=== PATIENT | female | born 1985 | race Caucasian/White ===

== ENCOUNTER 2018-08-26 18:31 | Emergency (ER) | payer OTHER, SELFPAY ==
[2018-08-26 18:32] VITALS: BP 134/86; PULSE 90; RESP 18; TEMP 36.2; O2SAT 100; BMI 35.9
--- NOTE | 2018-08-26 18:50 | ED.VISSUMM ---
- ER Visit Summary Date of Service: 08/26/18 Chief Complaint: Forearm redness and discomfort after a recent IV History of Present Illness: The patient is a 32 F history of anxiety. Patient states she was having back spasms last week. Want to done at the ER in [place]. He placed an IV. She was given IV fluids. And Toradol. She states that on Thursday she started getting some discomfort in left forearm and a red streak. No fever. No chest pain. No shortness of breath. No significant swelling of her left arm. No prior history of DVT or phlebitis. Physical Examination: Very well-appearing young female. Vital signs are stable afebrile. H EENT exam unremarkable. Neck nontender. Lungs there to auscultation bilaterally. Heart regular rhythm no murmur. Abdomen soft nontender. Patient is moving all 4 extremities. Neurovascular intact. She has 5 out of 5 plugger strength in both hands. The left forearm on the radial side there is a red streak about mid forearm that goes up just past her antecubital fossa. This area is mildly tender. There is a red streak but no otherwise cellulitis. There is no axillary tenderness or lymphadenopathy. She has full range of motion to her left hand, wrist, elbow and shoulder. There is no edema to the forearm. She has a normal radial pulse. Normal cap refill. No swelling. The exam is consistent with a superficial phlebitis versus lymphangitis. Test Results: None Emergency Department Course and Treatment: P.o. Keflex. Treatment Plan: Warm compresses to the area. Motrin for pain and inflammation. Keflex 4 times a day for 1 week. Follow-up with her primary if not improving or return to the ER if looking worse specifically if she starts getting swelling of the arm. Or fever. Disposition: Discharge Impression: Acute left forearm superficial phlebitis status post recent IV (rule out lymphangitis) This note was generated with [employer] dictation software. It may contain incorrect words, spelling, and punctuation that were not noted in review of the chart prior to signing ED Disposition - Plan for ED Patient: Chief Complaint: Cellulitis Referrals: Jole Giron DO [Primary Care Provider] -
--- NOTE | 2018-08-26 18:53 | ED.DCSUM_ITS ---
- ER Visit Summary Date of Service: 08/26/18 Chief Complaint: Forearm redness and discomfort after a recent IV History of Present Illness: The patient is a 32 F history of anxiety. Patient states she was having back spasms last week. Want to done at the ER in [place]. He placed an IV. She was given IV fluids. And Toradol. She states that on Thursday she started getting some discomfort in left forearm and a red streak. No fever. No chest pain. No shortness of breath. No significant swelling of her left arm. No prior history of DVT or phlebitis. Physical Examination: Very well-appearing young female. Vital signs are stable afebrile. H EENT exam unremarkable. Neck nontender. Lungs there to auscultation bilaterally. Heart regular rhythm no murmur. Abdomen soft nontender. Patient is moving all 4 extremities. Neurovascular intact. She has 5 out of 5 digital x ray service engineer strength in both hands. The left forearm on the radial side there is a red streak about mid forearm that goes up just past her antecubital fossa. This area is mildly tender. There is a red streak but no otherwise cellulitis. There is no axillary tenderness or lymphadenopathy. She has full range of motion to her left hand, wrist, elbow and shoulder. There is no edema to the forearm. She has a normal radial pulse. Normal cap refill. No swelling. The exam is consistent with a superficial phlebitis versus lymphangitis. Test Results: None Emergency Department Course and Treatment: P.o. Keflex. Treatment Plan: Warm compresses to the area. Motrin for pain and inflammation. Keflex 4 times a day for 1 week. Follow-up with her primary if not improving or return to the ER if looking worse specifically if she starts getting swelling of the arm. Or fever. Disposition: Discharge Impression: Acute left forearm superficial phlebitis status post recent IV (rule out lymphangitis) This note was generated with [employer] dictation software. It may contain incorrect words, spelling, and punctuation that were not noted in review of the chart prior to signing ED Disposition - Plan for ED Patient: Chief Complaint: Cellulitis Referrals: Joel Giron DO [Primary Care Provider] -
--- NOTE | 2018-08-26 18:53 | ED.DEP ---
ED Disposition - Plan for ED Patient: Disposition: Home or Assisted Living Chief Complaint: Cellulitis Instructions: ED Phlebitis Superficial Prescriptions: Cephalexin [Keflex] 500 mg PO Q6 #30 cap Referrals: oJel Giron DO [Primary Care Provider] - 3-5 Days if not improving Additional Instructions: Warm compresses or heating pad to left forearm 3 times a day until resolved. Motrin for pain and inflammation. 600 mg 3 times a day. Keflex 1 pill 4 times a day till gone. Return if looking a lot worse or develops new swelling in your forearm. Otherwise follow-up your primary care physician as needed.
[2018-08-26] MEDS: Cephalexin 250 MG Capsule 500 MG PO (19:05)
[2018-08-26 19:07] VITALS: PULSE 87; RESP 16; O2SAT 99
--- OUTSIDE RECORDS SUMMARY | 2018-10-21 23:35 | XMS RPT_ITS ---
:1985 Author Organization OHIP Care Team Providers Name Role Phone ROCÍO LOPEZ Attending Unavailable JAYLEN VASQUEZ ([facility]) Attending Unavailable KAILA NOBLES Attending Unavailable JOEL GIRON DO Primary Care Unavailable ROBERTO Faye Attending Unavailable JOEL GIRON DO Primary Care Unavailable ROBERTO Faye Attending Unavailable JOEL GIRON DO Primary Care Unavailable JIM LEDESMA Attending Unavailable SELF, SELF Referring Unavailable Joel Giron Primary Care Unavailable Gino Loera Attending Unavailable PROBLEMS PROBLEMS DATE TYPE CONDITION / ATTENDING STATUS SOURCE CODE 08/26/2018 Admitting Arm swelling / LEDESMA, Active [facility] Diagnosis [id number]() [facility] ([place]) Repository PROCEDURES PROCEDURES No Procedure Records FoundRESULTS RESULTS CBC Collected: 09/03/2018 Status: F Source: [facility] 4:31 PM [place] [facility] REPOSITORY TYPE CODE TESTS RESULT OUT OF REFERENCE UNITS RANGE LAB WBC(LOINC) 4.60-10.80 10 3/mcL WBC 9.40 LAB RBCCT(LOINC 4.20-5.40 10 6/mcL ) RBC 4.83 LAB HGB(LOINC) 12.0-16.0 G/dL Hgb 13.9 LAB HCT(LOINC) 37.0-47.0 % Hct 41.7 LAB MCV(LOINC) 80.0-94.0 fL MCV 86.4 LAB MCH(LOINC) 27.0-31.2 pg MCH 28.8 LAB MCHC(LOINC) 33.0-37.0 G/dL MCHC 33.4 LAB RDW(LOINC) 11.5-14.5 % RDW 12.7 LAB PLT(LOINC) 130-400 10 3/mcL Platelet 308 LAB MPV(LOINC) 7.4-10.4 fL MPV 8.2 Performed By: #### ANEU, CBC, ADIFF #### [address] [address] .AUTO DIFF Collected: 09/03/2018 Status: F Source: [facility] 4:31 [facility] REPOSITORY TYPE CODE TESTS RESULT OUT OF REFERENCE UNITS RANGE LAB AYDEE(LOINC) 37.0-80.0 % Neutrophil % 57.5 LAB LYM(LOINC) 10.0-50.0 % Lymphocyte % 33.6 LAB MON(LOINC) 1.7-13.0 % Monocyte % 6.8 LAB EO(LOINC) 0.0-7.0 % Eosinophil % 1.7 LAB BAS(LOINC) 0.0-2.5 % Basophil % 0.4 LAB ABLYM(LOIN 0.77-3.85 10 3/mcL C) Lymphocyte, 3.20 Absolute LAB LETY(LOINC 0.15-1.00 10 3/mcL ) Monocyte, 0.60 Absolute LAB AEOS(LOINC 0.00-0.40 10 3/mcL ) Eosinophil, 0.20 Absolute LAB ABAS(LOINC 0.00-0.19 10 3/mcL ) Basophil, 0.00 Absolute Performed By: #### ANEU, CBC, ADIFF #### [address] [address] .NEUABS Collected: 09/03/2018 Status: F Source: [facility] 4:31 PM [facility] REPOSITORY TYPE CODE TESTS RESULT OUT OF REFERENCE UNITS RANGE LAB ANEU(LOINC) 2.85-6.16 10 3/mcL Neutrophil, 5.40 Absolute Performed By: #### ANEU, CBC, ADIFF #### [id number] [place], [place] [address] VL VENOUS UNILATERAL Observed: 08/27/2018 Status: F Source: [facility] EXT FOR DVT 8:54 AM [facility] REPOSITORY ORIGINAL DUPLEX UPPER EXTREMITY VENOUS DOPPLER: LEFT Clinical Statement: LEFT arm pain, history of recent IV in the LEFT upper extremity last week Comparison: None Findings: There is echogenic material/filling defect within the noncompressible LEFT basilic vein. The LEFT subclavian, axillary, brachial, radial, ulnar, and cephalic veins show no direct or indirect evidence of thrombosis. There is normal phasic spontaneous flow in these veins which are also compre ssible. The internal jugular vein is also patent. Spectral analysis shows normal flow augmentation in the subclavian and axillary veins with physiologic maneuvers. IMPRESSION: Superficial venous thrombosis within the LEFT basilic vein. No extension into the deep venous structures identified. I have personally reviewed the images of this examination and agree with the resident's findings and interpretation. Interpreted By: Justa Alvarado MD Preliminary Report By: Daniel Jefferson DO Electronically Signed By: Justa Alvarado MD Dictated Date: 08/27/2018 10:01:08 AM Prelim Date: 08/27/2018 10:21:12 AM Sign Date: 08/27/2018 10:39:58 AM EMERGENCY DEPARTMENT Observed: 08/26/2018 Status: F Source: [facility] SUMMARY 11:54 PM [facility] REPOSITORY [facility] Medical Records Department [address] [place] [address] Emergency Department Summary 08/26/18 1850 MR#: [id number] Acct: [id number] Name: KASSANDRA HAHN Rep #: [id number] : 1985 32 From: Gino Loera MD PCP: Joel Giron DO Status: DEP ER - ER Visit Summary Date of Service: 08/26/18 Chief Complaint: Forearm redness and discomfort after a recent IV History of Present Illness: The patient is a 32 F history of anxiety. Patient states she was having back spasms last week. Want to done at the ER in [place]. He placed an IV. She was given IV fluids. And Toradol. She states that on Thursday she started getting some discomfort in left forearm and a red streak. No fever. No chest pain. No shortness of breath. No significant swelling of her left arm. No prior history of DVT or phlebitis. Physical Examination: Very well-appearing young female. Vital signs are stable afebrile. H EENT exam unremarkable. Neck nontender. Lungs there to auscultation bilaterally. Heart regular rhythm no murmur. Abdomen soft nontender. Patient is moving all 4 extremities. Neurovascular intact. She has 5 out of 5 lyric writer strength in both hands. The left forearm on the radial side there is a red streak about mid forearm that goes up just past her antecubital fossa. This area is mildly tender. There is a red streak but no otherwise cellulitis. There is no axillary tenderness or lymphadenopathy. She has full range of motion to her left hand, wrist, elbow and shoulder. There is no edema to the forearm. She has a normal radial pulse. Normal cap refill. No swelling. The exam is consistent with a superficial phlebitis versus lymphangitis. Test Results: None Emergency Department Course and Treatment: P.o. Keflex. Treatment Plan: Warm compresses to the area. Motrin for pain and inflammation. Keflex 4 times a day for 1 week. Follow-up with her primary if not improving or return to the ER if looking worse specifically if she starts getting swelling of the arm. Or fever. Disposition: Discharge Impression: Acute left forearm superficial phlebitis status post recent IV (rule out lymphangitis) This note was generated with [employer] dictation software. It may contain incorrect words, spelling, and punctuation that were not noted in review of the chart prior to signing ED Disposition - Plan for ED Patient: Chief Complaint: Cellulitis Referrals: Joel Giron, DO [Primary Care Provider] - What to do if you have Problems For any increased pain, shortness of breath, bleeding, nausea or vomiting, chest pain, or any unexpected problems, contact your Primary Care Provider. Call [facility] ([phone]) or report to the closest Emergency Room. Call 911 if necessary. 08/26/18 3824 <Electronically signed by Gino Loera MD> Date Gino Loera MD Cosigner Signature (If Indicated): Date CC: Joel Giron DO DISCHARGE INSTRUCTION Observed: 08/26/2018 Status: F Source: [place] 11:54 PM [facility] REPOSITORY [facility] Medical Records Department [address] [place] [address] Discharge Instruction 08/26/18 1853 MR#: [id number] Acct: [id number] Name: KASSANDRA HAHN Rep #: [id number] : 1985 32 From: Gino Loera MD PCP: Joel Giron DO Status: DEP ER ED Disposition - Plan for ED Patient: Disposition: Home or Assisted Living Chief Complaint: Cellulitis Instructions: ED Phlebitis Superficial Prescriptions: Cephalexin [Keflex] 500 mg PO Q6 #30 cap Referrals: Joel Giron DO [Primary Care Provider] - 3-5 Days if not improving Additional Instructions: Warm compresses or heating pad to left forearm 3 times a day until resolved. Motrin for pain and inflammation. 600 mg 3 times a day. Keflex 1 pill 4 times a day till gone. Return if looking a lot worse or develops new swelling in your forearm. Otherwise follow-up your primary care physician as needed. What to do if you have Problems For any increased pain, shortness of breath, bleeding, nausea or vomiting, chest pain, or any unexpected problems, contact your Primary Care Provider. Call [facility] ([phone]) or report to the closest Emergency Room. Call 911 if necessary. 08/26/18 0758 <Electronically signed by Gino Loera MD> Date Gino Loera MD Cosigner Signature (If Indicated): Date CC: Joel Giron DO CT ABDOMEN/PELVIS W/O Observed: 08/18/2018 Status: F Source: [facility] 7:34 PM [facility] [place] [facility] REPOSITORY ORIGINAL CT ABDOMEN/PELVIS W/O CONTRAST This exam was performed according to our departmental dose optimization program, and includes the following measures where applicable: automated exposure control, adjustment of the mAs and/or kVp accord ing to patient size and/or exam, and an iterative reconstruction algorithm. CLINICAL STATEMENT: Abdominal pain. COMPARISON: None FINDINGS: Lung bases are clear. Liver is diffusely low in density. No focal liver lesion. Gallbladder and biliary tree, pancreas, spleen and stomach and duodenum are unremarkable. Adrenal glands and kidneys are unremarkable. No aorti c aneurysm. Urinary bladder and uterus and adnexal structures are normal. Large and small bowel loops are normal in appearance. No ascites or free air. Appendix is normal. No suspicious bone lesions. IMPRESSION: No visible acute process. Low-density of the liver most likely fatty infiltration. Interpreted By: Porfirio Goodman MD Preliminary Report By: Porfirio Goodman MD Electronically Signed By: Porfirio Goodman MD Dictated Date: 08/18/2018 8:08:37 PM Prelim Date: 08/18/2018 8:08:37 PM Sign Date: 08/18/2018 8:10:42 PM CBC Collected: 08/18/2018 Status: F Source: [facility] 6:36 PM [facility] REPOSITORY TYPE CODE TESTS RESULT OUT OF REFERENCE UNITS RANGE LAB WBC(LOINC) 4.60-10.80 10 3/mcL WBC 8.40 LAB RBCCT(LOINC 4.20-5.40 10 6/mcL ) RBC 5.01 LAB HGB(LOINC) 12.0-16.0 G/dL Hgb 14.6 LAB HCT(LOINC) 37.0-47.0 % Hct 43.5 LAB MCV(LOINC) 80.0-94.0 fL MCV 86.9 LAB MCH(LOINC) 27.0-31.2 pg MCH 29.2 LAB MCHC(LOINC) 33.0-37.0 G/dL MCHC 33.7 LAB RDW(LOINC) 11.5-14.5 % RDW 12.8 LAB PLT(LOINC) 130-400 10 3/mcL Platelet 296 LAB MPV(LOINC) 7.4-10.4 fL MPV 7.9 Performed By: #### GFR, BMP #### [place] [address] #### ANEU, ADIFF, CBC #### [address] [address] .AUTO DIFF Collected: 08/18/2018 Status: F Source: [facility] 6:36 PM [facility] REPOSITORY TYPE CODE TESTS RESULT OUT OF REFERENCE UNITS RANGE LAB AYDEE(LOINC) 37.0-80.0 % Neutrophil % 53.7 LAB LYM(LOINC) 10.0-50.0 % Lymphocyte % 36.7 LAB MON(LOINC) 1.7-13.0 % Monocyte % 7.4 LAB EO(LOINC) 0.0-7.0 % Eosinophil % 1.5 LAB BAS(LOINC) 0.0-2.5 % Basophil % 0.7 LAB ABLYM(LOIN 0.77-3.85 10 3/mcL C) Lymphocyte, 3.10 Absolute LAB LETY(LOINC 0.15-1.00 10 3/mcL ) Monocyte, 0.60 Absolute LAB AEOS(LOINC 0.00-0.40 10 3/mcL ) Eosinophil, 0.10 Absolute LAB ABAS(LOINC 0.00-0.19 10 3/mcL ) Basophil, 0.10 Absolute Performed By: #### GFR, BMP #### [place] [address] #### ANEU, ADIFF, CBC #### [address] [address] .NEUABS Collected: 08/18/2018 Status: F Source: [facility] 6:36 PM [facility] REPOSITORY TYPE CODE TESTS RESULT OUT OF REFERENCE UNITS RANGE LAB ANEU(LOINC) 2.85-6.16 10 3/mcL Neutrophil, 4.50 Absolute Performed By: #### GFR, BMP #### [place] [address] #### ANEU, ADIFF, CBC #### [address] [address] BMP Collected: 08/18/2018 Status: F Source: [facility] 6:36 PM [facility] REPOSITORY TYPE CODE TESTS RESULT OUT OF REFERENCE UNITS RANGE LAB GLU(LOINC) 70-105 mg/dL Glucose Level 88 LAB NA(LOINC) 136-145 mmol/L Sodium Level 137 LAB K(LOINC) 3.5-5.1 mmol/L Potassium Level 3.9 LAB CL(LOINC) 98-107 mmol/L Chloride 104 LAB CO2(LOINC) 22-29 mmol/L CO2 24 LAB EBAL(LOINC mEq/L ) Electrolyte Balance 9.0 LAB BUN(LOINC) 7-18 mg/dL BUN 12 LAB CRE(LOINC) 0.55-1.02 mg/dL Creatinine Lvl (s) 0.82 LAB BC(LOINC) 7-27 ratio BUN/Creatinine 15 Ratio LAB CA(LOINC) 8.4-10.2 mg/dL Calcium Lvl 8.8 Performed By: #### GFR, BMP #### [facility] [address] [place] [id number] #### ANEU, ADIFF, CBC #### [address] [address] .GFR Collected: 08/18/2018 Status: F Source: [facility] 6:36 PM [facility] REPOSITORY TYPE CODE TESTS RESULT OUT OF REFERENCE UNITS RANGE LAB GFRAA(LOINC ml/min/1.73 ) sqm GFR 97 [place] Result Comment: GFR Population mean for , Non- Americans Ages 20-29 = 116 mL/min/1.73 sq.m. Ages 30-39 = 107 mL/min/1.73 sq.m. Ages 40-49 = 99 mL/min/1.73 sq.m. Ages 50-59 = 93 mL/min/1.73 sq.m. Ages 60-69 = 85 mL/min/1.73 sq.m. Ages 70+ = 75 mL/min/1.73 sq.m. Chronic Kidney Disease: Less than 60 mL/min/1.73 square meters End Stage Renal Disease: Less than 15 mL/min/1.73 square meters LAB GFRNO(LOINC) ml/min/1.73sqm GFR Non- 80 Result Comment: GFR Population mean for , Non- Americans Ages 20-29 = 116 mL/min/1.73 sq.m. Ages 30-39 = 107 mL/min/1.73 sq.m. Ages 40-49 = 99 mL/min/1.73 sq.m. Ages 50-59 = 93 mL/min/1.73 sq.m. Ages 60-69 = 85 mL/min/1.73 sq.m. Ages 70+ = 75 mL/min/1.73 sq.m. Chronic Kidney Disease: Less than 60 mL/min/1.73 square meters End Stage Renal Disease: Less than 15 mL/min/1.73 square meters Performed By: #### GFR, BMP #### [place] [address] #### ANEU, ADIFF, CBC #### [address] [address] UA Collected: 08/18/2018 Status: F Source: [facility] 6:12 PM [facility] [facility] REPOSITORY TYPE CODE TESTS RESULT OUT OF RANGE REFERENCE UNITS LAB SPCUA([place]) UA Specimen Type Clean Catch LAB CLRUA([place]) UA Color Yellow LAB APPUA([place] Clear NC) UA Appear Clear LAB SGUA(LOIN C) UA Spec Unknown Grav 1.005 LAB GLUA(LOIN Negative mg/dL C) UA Glucose Negative LAB BILUA([place] Negative NC) UA Bili Negative LAB KETUA([place] Negative mg/dL NC) UA Ketones Negative LAB BLDUA([place] Negative NC) UA Blood Negative LAB PHUA(LOIN C) UA pH 7.0 LAB PROUA([place] Negative mg/dL NC) UA Protein Negative LAB UROUA([place] E.U./dL NC) UA Urobilinogen 0.2 LAB NITUA([place] Negative NC) UA Nitrite Negative LAB LEUUA([place] Negative NC) UA Leuk Est Negative Performed By: #### UA, PREGU, UAMICAO #### [address] [place], [place] [address] .URINALYSIS MICROSCOPIC Collected: 08/18/2018 Status: F [facility] PM [facility] [place] REPOSITORY TYPE CODE TESTS RESULT OUT OF REFERENCE UNITS RANGE LAB WBCUA(LOIN None Seen /hpf C) UA WBC None Seen LAB RBCUA(LOIN None Seen /hpf C) UA RBC None Seen LAB EPIUA(LOIN None Seen /hpf C) UA Squam Epithelial None Seen Performed By: #### UA, PREGU, UAMICAO #### [facility] [address] [place], [place] [address] PREGU Collected: 08/18/2018 Status: F Source: [facility] 6:12 PM [facility] REPOSITORY TYPE CODE TESTS RESULT OUT OF RANGE REFERENCE UNITS LAB PREGU(LOIN C) Test Negative Urine LAB PRUG1(LOIN C) Unknown test HCG not (u) int detected. Performed By: #### UA, PREGU, UAMICAO #### [facility] [address] [place], [place] [address] PROGRESS Observed: 12/07/2017 Status: COMPLETED Source: [place] 11:41 AM [facility] [place] REPOSITORY HNO ID: [id number] Author: Jaylen Vasquez Service: (none) Author Type: Nurse Practitioner Type: Progress Notes Filed: 12/07/2017 11:49 AM Note Text: Telemedicine Visit - Distance Health Virtual Visit Note Patient seen on [facility] platform. Location of patient: [place] History of Present Illness Kassandra Hahn is a 32 year old year old female who presents for the past 8 days ago initial onset of symptoms began with a cough. Associated symptoms include R>L sinus pressure sinus pain radiating to the teeth, thick yellow curd nasal congestion, and wheezing. Symptoms that are: worsening. She has developed night sweats, and chills and ear pressure with dizziness. Oral intake: hydration good Tobacco use: No Second hand smoke exposure: No Recent exposure to strep:No Sick contacts: yes household Recent travel: no OTC meds/remedies that patient has tried: dayquil. Hx of vertigo and asthma She has began the rescue inhaler and used her daughters nebulizer x2 due to chest congestion and pressure. PAST MEDICAL HISTORY Diagnosis Date - FRACTURE AGE 7 FALL, WRIST - Migraine, unspecified, with intractable migraine, so stated, without mention of status migrainosus Migraine - Unspecified asthma(493.90) PAST SURGICAL HISTORY Procedure Laterality Date - PAST SURGICAL HISTORY OF 11/24/2012 Primary low transverse section at [facility] FAMILY HISTORY Problem Relation Age of Onset - Thyroid Mother Underactive Thyroid - Cancer Paternal Grandfather lymphoma - Alzheimer's Disease Maternal Grandmother - Diabetes Paternal Grandmother - Diabetes Maternal Grandfather - Cancer Maternal Grandfather LIVER, COLON, AND PROSTATE - Breast Cancer Maternal Aunt - Cancer Maternal Aunt thyroid Current Outpatient Prescriptions: eletriptan (RELPAX) 20 mg tablet Take 20 mg by mouth as needed. may repeat in 2 hours if necessary Desogestrel-Ethinyl Estradiol (VIORELE, 28,) 0.15-0.02 mgx21 /0.01 mg x 5 per tablet Take 1 tablet by mouth once daily. amoxicillin-clavulanic acid (AUGMENTIN) 875-125 mg per tablet Take 1 tablet by mouth every 12 hours for 7 days. fluticasone (FLONASE) 50 mcg/actuation nasal spray Use 2 Sprays in each nostril daily at bedtime. albuterol HFA (PROAIR HFA) 90 mcg/actuation inhaler 2 Puffs every 4 hours as needed for Wheezing/Shortness of Breath. Take as directed predniSONE (DELTASONE) 20 mg tablet Take (2) two tablets by mouth daily for 5 days. loratadine-pseudoephedrine ER (CLARITIN-D 24 HOUR) 10-240 mg Tb24 Take 1 tablet by mouth once daily as needed ( For allergy symptoms). No current facility-administered medications for this visit. ALLERGIES Allergen Reactions - Grass Pollen Intolerance - Pollen Intolerance Video Exam (Examination performed via Video enabled technology) General appearance: Alert, oriented, pleasant, in NAD :Yes Ill appearing :Yes Lethargic appearing :No Eyes: Sclera clear :Yes Conjunctiva without erythema :Yes Ears: Tragus / outer ear tenderness by self palpation :No Oropharynx: mild erythema Frontal sinus tenderness by self palpation;No Maxillary sinus tenderness by self palpation :Yes R>L Tender cervical adenopathy by self palpation :No Respiratory distress :No Coughing noted :Yes Audible wheezing noted :Yes ASSESSMENT/PLAN: 1. Acute non-recurrent maxillary sinusitis - ICD9: 461.0, ICD10: J01.00 (primary diagnosis) 2. Cough - ICD9: 786.2, ICD10: R05 3. Wheezing - ICD9: 786.07, ICD10: R06.2 4. Seasonal allergic rhinitis, unspecified trigger - ICD9: 477.9, ICD10: J30.2 - Will begin treatment with as per antibiotic as written, see orders - The patient should also be given OTC decongestants prn, warm salt water gargles, throat lozenges and/or OTC throat spray as needed and nasal saline gtts and suction prn for the first 5-7 days of treatment. - Supportive care with plenty of fluids, rest, and analgesia prn. - Follow up in 3-5 days if symptoms persist or worsen. - AMOXICILLIN 875 MG-POTASSIUM CLAVULANATE 125 MG TABLET - FLUTICASONE 50 MCG/ACTUATION NASAL SPRAY,SUSPENSION - ALBUTEROL SULFATE HFA 90 MCG/ACTUATION AEROSOL INHALER - PREDNISONE 20 MG TABLET - LORATADINE-PSEUDOEPHEDRINE ER 10 MG-240 MG TABLET,EXTENDED [id number] -Tylenol (generic acetaminophen) 500 mg-2 tabs every 8 hrs. as needed for fever and aches -Mucinex (generic is fine) 1200 mg twice daily to help with cough and to thin out mucus - Red flags discussed for need for in person care - All questions answered Jaylen Vasquez CNP We strongly encourage you to share the following record of today's visit with your primary care provider. This will help in providing you the best care. EXPRESS CARE PATIENT INFO ACUTE SINUSITIS OVERVIEW Rhinosinusitis, or more commonly sinusitis, is the medical term for inflammation (swelling) of the lining of the sinuses and nose. The sinuses are the hollow areas within the facial bones that are connected to the nasal openings. The sinuses are lined with mucous membranes, similar to the inside of the nose. There are two main types of sinusitis: acute and chronic. Acute sinusitis is inflammation that lasts for less than four weeks while chronic sinusitis lasts for more than 12 weeks. Acute sinusitis is common, affecting approximately one million people per year in the [place]. ACUTE SINUSITIS CAUSES The most common cause of acute sinusitis is a viral infection associated with the common cold. Bacterial sinusitis occurs much less commonly, in only 0.5 to 2 percent of cases, usually as a complication of viral sinusitis. Because antibiotics are effective only against bacterial, and not viral, infections, most people do not need antibiotics for acute sinusitis. ACUTE SINUSITIS SYMPTOMS Symptoms of acute sinusitis include: ? Nasal congestion or blockage ? Thick, yellow to green discharge from the nose ? Pain in the teeth ? Pain or pressure in the face that is worse when bending forwards Other acute sinusitis symptoms can include fever (temperature greater than 100.4?F or 38?C), fatigue, cough, difficulty or inability to smell, ear pressure or fullness, headache, and bad breath. In most cases, these symptoms develop over the course of one day and begin to improve within seven to 10 days. DO I NEED TO BE EXAMINED? It is difficult to know if you have a viral or bacterial sinus infection initially. However, most people with a viral infection improve without treatment within seven to 10 days after symptoms begin. Bacterial sinusitis also sometimes improves without treatment, although it can also worsen and require treatment. If one or more of the following bothersome symptoms last more than seven days, an examination by a healthcare provider is recommended: ? Thick, yellow to green discharge from the nose ? Face or tooth pain, especially if it is only on one side ? Tenderness over the maxillary sinuses (located on the left and right side of the nose, inside the cheekbones) ? Symptoms that initially improve and then worsen When to seek immediate help ? If you have one or more of the following symptoms, you should seek medical attention immediately (even if symptoms have been present for less than seven days): ? High fever (>102.5? F or 39.2? C) ? Sudden, severe pain in the face or head ? Double vision or difficulty seeing ? Confusion or difficulty thinking clearly ? Swelling or redness around one or both eyes ? Stiff neck, shortness of breath ACUTE SINUSITIS TREATMENT Initial treatment of a sinus infection aims to relieve symptoms since almost everyone will improve within the first seven to 10 days. Experts recommend avoiding antibiotics during this time unless there is clear evidence of a severe bacterial infection. Initial treatment Pain relief ? Non-prescription pain medications, such as acetaminophen (eg, Tylenol?) or ibuprofen (eg, Motrin?, Advil?) are recommended for pain. Nasal irrigation and saline sprays ? Rinsing the nose with a salt-water (saline) solution is called nasal irrigation or nasal lavage. Saline is also available in a standard nasal spray, although this is not as effective as using larger amounts of water in an irrigation. Nasal irrigation is particularly useful for treating drainage down the back of the throat, sneezing, nasal dryness, and congestion. The treatment helps by rinsing out allergens and irritants from the nose. Saline rinses also clean the nasal lining and can be used before applying sprays containing medications, to get a better effect from the medication. Nasal lavage with warmed saline can be performed as needed, once per day, or twice daily for increased symptoms. Nasal lavage carries few risks when performed correctly. Saline nasal sprays and irrigation kits can be purchased [id number]. Saline mixes can also be purchased or patients can make their own solution. A variety of devices, including bulb syringes, Neti pots, and bottle sprayers, may be used to perform nasal lavage; instructions for nasal lavage are provided in the table. At least 200 mL (about 3/4 cup) of fluid is recommended for each nostril. Nasal decongestants ? Nasal decongestant sprays, including oxymetazoline (Afrin?) and phenylephrine (Stuart-synephrine?) can be used to temporarily treat congestion. However, these sprays should not be used for more than two to three days due to the risk of rebound congestion (when the nose is congested constantly unless the medication is used repeatedly). Other treatments ? Other treatments for congestion, such as oral antihistamines (such as diphenhydramine/Benadryl?) or zinc supplements are not proven to improve symptoms of sinusitis and can have unwanted side effects. Medications to thin secretions (such as guaifenesin) may help to clear mucus. Secondline treatment ? If symptoms have not improved in seven to ten days, you should arrange for medical evaluation. You may need further treatment. Nasal glucocorticoids ? Nasal glucocorticoids (steroids delivered by a nasal spray) can help to reduce swelling inside the nose, usually within two to three days. These drugs have few side effects and dramatically relieve symptoms in most people. There are a number of nasal glucocorticoids available by prescription. These drugs are all effective, but differ in how frequently they must be used and how much they cost. You may need to use a nasal decongestant for a few days before starting a nasal glucocorticoid to reduce nasal swelling; this will allow the nasal glucocorticoid to reach more areas of the nasal passages Do I need an antibiotic? ? If bothersome symptoms of sinusitis persist for 10 or more days, it is possible that you have bacterial sinusitis. The need for antibiotics depends upon the severity of your symptoms. Mild symptoms ? There are two possible treatment options if you have mild sinusitis symptoms: treat with antibiotics or continue to watch and wait for one week. Watching and waiting is a reasonable option because up to 75 percent of people with bacterial sinusitis improve within one month without antibiotics. During the watch and wait period, treatments to improve symptoms are recommended. If symptoms worsen or do not improve after watching and waiting, treatment with an antibiotic is usually recommended. Treatments to relieve symptoms are recommended while using antibiotics. Moderate or severe symptoms ? Most healthcare providers will prescribe an antibiotic for moderate to severe symptoms (temperature >38.3? C or 101? F and/or severe pain that interferes with usual activities). Treatments to relieve symptoms are also recommended during antibiotic treatment. One of the least expensive and most effective antibiotics for sinusitis is amoxicillin. An alternate antibiotic will be prescribed if you are allergic to penicillin. Regardless of which antibiotic is prescribed, it is important to follow the dosing instructions carefully and to finish the entire course of treatment. Taking the medication less often than prescribed or stopping the medication early can lead to complications, such as a recurrent infection. What if I do not improve with treatment? ? If you do not improve or worsen after a course of antibiotics, you should be re-examined. In some cases, symptoms of sinusitis improve but then recur. This is usually because the infection was not completely eliminated by the antibiotic. An alternate antibiotic, extended antibiotic treatment, and/or further testing may be recommended, depending upon your individual situation. HPV W/GENOTYPE Collected: 10/13/2017 Status: F Source: THICKET 8:54 AM [facility] REPOSITORY TYPE CODE TESTS RESULT OUT OF REFERENCE UNITS RANGE LAB HPVT16 HPV HighRisk Negative for Type 16 HPV DNA high risk type 16 by PCR. LAB HPVT18 HPV HighRisk Negative for Type 18 HPV DNA high risk type 18 by PCR. LAB HPVHRO HPV HighRisk Negative for Other HPV DNA high risk types: 31,33,35,39,45 ,51,52,56,58,5 9,66,68 by PCR. Result Comment: This test was developed and its performance characteristics determined by [facility] [place] ([facility]). It has not been cleared or approved by the FDA. [facility] is regulated under CLIA as qualified to perform high-complexity testing. This test is used for clinical purposes. It should not be regarded as inv estigational or for research. Performed By: #### HPVHRR #### [facility] [address] [id number] CYTOLOGY Observed: 10/13/2017 Status: C Source: THICKET 8:54 [facility] REPOSITORY ADDITIONAL PROCEDURES PRESENT Specimen originated from [facility] Specimen #: [id number] Submitting Physician: ROCÍO GALO MD SPECIMEN SUBMITTED A: CERVICAL, SCREENING, FLUID FINAL DIAGNOSIS A. CERVICAL, SCREENING, FLUID Satisfactory for interpretation. Negative for intraepithelial lesion or malignancy. This specimen has been analyzed by the ThinPrep Imaging System, an automated imaging and review system, which assists the laboratory in evaluating cells on ThinPrep Pap tests. Following automated imaging, selected chadwick from every slide are reviewed by a merchant banker. BEN Sibley(ASCP) (Electronic Signature) ADDITIONAL PROCEDURE(S) HUMAN PAPILLOMA VIRUS Date Ordered: 10/14/2017 Date Reported: 10/15/2017 Procedure Results and Interpretation Negative for HPV DNA high risk type 16 by PCR. Negative for HPV DNA high risk type 18 by PCR. Negative for HPV DNA high risk types: 31,33,35,39,45,51,52,56,58,59,66,68 by PCR. This test was developed and its performance characteristics determined by [facility] [place] ([facility]). It has not been cleared or approved by the FDA. [facility] is regulated under CLIA as qualified to perform high-complexity testing. This test is used for clinical purposes. It should not be regarded as investigational or for research. CLINICAL DATA ROUTINE EXAM, HPV Testing: Yes, automatic HPV patients over 30 Date of Last Menstrual Period: 08/24/2017 STAINS A: CERVICAL, SCREENING, FLUID THIN PREP LEAD PROGRAMMER Tori Lopez M.D., Software Performance Engineer Date of Report: 10/20/2017 Date of Procedure: 10/13/2017 Date of Receipt: 10/14/2017 Submitted by: ROCÍO GALO MD Location: [facility] Diagnostic interpretation performed at [facility], [address] [place] [address]. The Pap Smear is a screening test for cervical cancer. False negative results occur with all screening tests, emphasizing the need for rescreening at recommended intervals, and clinical correlation. PROGRESS Observed: 10/13/2017 Status: COMPLETED Source: THICKET 8:41 AM [facility] REPOSITORY HNO ID: [id number] Author: Rocío Galo Service: (none) Author Type: Physician Type: Progress Notes Filed: 10/13/2017 8:57 AM Note Text: Kassandra Hahn is a 31 year old who presents for her annual gynecologic exam without complaints. 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 Contraception: oral contraceptives HPV vaccine: No Last Pap: 2013 normal HPV: N/A History of abnormal pap: No Last mammogram: never Sexually active: Yes History of STDS: None Patient concerns for STD exposure: No. Pain with intercourse: No Postcoital bleeding: No Exercise: walking/swimming Diet: balanced Obstetric History T0 L2 SAB1 TAB0 Ectopic0 Multiple1 Live Births3 PAST MEDICAL HISTORY Diagnosis Date - FRACTURE AGE 7 FALL, WRIST - Migraine, unspecified, with intractable migraine, so stated, without mention of status migrainosus Migraine - Unspecified asthma(493.90) PAST SURGICAL HISTORY Procedure Laterality Date - PAST SURGICAL HISTORY OF 11/24/2012 Primary low transverse section at [facility] FAMILY HISTORY Problem Relation Age of Onset - Thyroid Mother Underactive Thyroid - Cancer Paternal Grandfather lymphoma - Alzheimer's Disease Maternal Grandmother - Diabetes Paternal Grandmother - Diabetes Maternal Grandfather - Cancer Maternal Grandfather LIVER, COLON, AND PROSTATE - Breast Cancer Maternal Aunt - Cancer Maternal Aunt thyroid SOCIAL HISTORY Social History Substance Use Topics - Smoking status: Never Smoker - Smokeless tobacco: Never Used - Alcohol use 3.0 - 4.5 oz/week 2 - 3 Cans of Beer (12oz) per week Comment: OCCASIONAL, NOT WHILE REVIEW OF SYSTEMS Abdomen: No abdominal pain, nausea, vomiting, diarrhea, or constipation. No bloating, early satiety, indigestion, or increased flatulence. Bladder: No dysuria, gross hematuria, urinary frequency, urinary urgency, or incontinence. Breast: No breast lumps, nipple d/c, overlying skin changes, redness or skin retraction. Allergies and current medication updated:Yes EXAM: Ht 5' 6.5 (1.69m) Wt 215 lb (97.5kg) LMP 08/24/2017 BMI 34.19 kg/(m2). GENERAL: pleasant, female in no apparent distress HEENT: Normocephalic, atraumatic, mucus membranes moist and no lesions NECK: Supple, full range of motion, no adenopathy and thyroid normal DERMATOLOGY: Normal, without lesions, non-icteric and non-hirsute BREAST: soft, non-tender, symmetric, no dominant mass, normal nipple-areolar complex, no lymphadenopathy and no nipple discharge ABDOMEN: soft, non-tender and no masses PELVIC: external genitalia normal, normal Bartholin's glands, urethra, Lithium's glands, no vulvar lesions, no cervical lesions, good vaginal support, physiologic discharge present, normal appearing perineal body and perianal region. Small simple appearing vaginal cyst posterior right vaginal wall. BIMANUAL: uterus normal size, shape and consistency, no adnexal masses and non-tender RECTOVAGINAL: deferred. NEURO: alert and oriented x3,exam grossly non-focal EXTREMITIES: normal ASSESSMENT/PLAN: 1) Health maintenance: Pap done with HPV. Mammogram starting age 40. Nutrition, exercise and routine health maintenance exams reviewed. Calcium/Vitamin D supplementation information provided. 2) Contraception: oral contraceptives . Contraceptive options reviewed and information provided. 3) STD screening: Declined STD check. 4) Follow up one year or sooner as needed Rocío Maldonado MD CNOV Observed: 10/13/2017 Status: COMPLETED Source: THICKET 8:40 AM [facility] REPOSITORY Office Visit (WOOB) KASSANDRA HAHN ([id number]) 1985 F Date Time Provider Department 10/13/17 8:40 AM ROCÍO LOPEZ WOOB During your visit today, we recorded the following information about you: Blood pressure Weight Height Last Period 120/80 97.5 kg 1.689 m 08/24/17 Rocío Maldonado MD 10/13/2017 8:57 AM Signed Kassandra Hahn is a 31 year old who presents for her annual gynecologic exam without complaints. 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 Contraception: oral contraceptives HPV vaccine: No Last Pap: 2013 normal HPV: N/A History of abnormal pap: No Last mammogram: never Sexually active: Yes History of STDS: None Patient concerns for STD exposure: No. Pain with intercourse: No Postcoital bleeding: No Exercise: walking/swimming Diet: balanced Obstetric History T0 L2 SAB1 TAB0 Ectopic0 Multiple1 Live Births3 PAST MEDICAL HISTORY Diagnosis Date - FRACTURE AGE 7 FALL, WRIST - Migraine, unspecified, with intractable migraine, so stated, without mention of status migrainosus Migraine - Unspecified asthma(493.90) PAST SURGICAL HISTORY Procedure Laterality Date - PAST SURGICAL HISTORY OF 11/24/2012 Primary low transverse section at [facility] FAMILY HISTORY Problem Relation Age of Onset - Thyroid Mother Underactive Thyroid - Cancer Paternal Grandfather lymphoma - Alzheimer's Disease Maternal Grandmother - Diabetes Paternal Grandmother - Diabetes Maternal Grandfather - Cancer Maternal Grandfather LIVER, COLON, AND PROSTATE - Breast Cancer Maternal Aunt - Cancer Maternal Aunt thyroid SOCIAL HISTORY Social History Substance Use Topics - Smoking status: Never Smoker - Smokeless tobacco: Never Used - Alcohol use 3.0 - 4.5 oz/week 2 - 3 Cans of Beer (12oz) per week Comment: OCCASIONAL, NOT WHILE REVIEW OF SYSTEMS Abdomen: No abdominal pain, nausea, vomiting, diarrhea, or constipation. No bloating, early satiety, indigestion, or increased flatulence. Bladder: No dysuria, gross hematuria, urinary frequency, urinary urgency, or incontinence. Breast: No breast lumps, nipple d/c, overlying skin changes, redness or skin retraction. Allergies and current medication updated:Yes EXAM: Ht 5' 6.5ANDquot; (1.69m) Wt 215 lb (97.5kg) LMP 08/24/2017 BMI 34.19 kg/(m2). GENERAL: pleasant, female in no apparent distress HEENT: Normocephalic, atraumatic, mucus membranes moist and no lesions NECK: Supple, full range of motion, no adenopathy and thyroid normal DERMATOLOGY: Normal, without lesions, non-icteric and non-hirsute BREAST: soft, non-tender, symmetric, no dominant mass, normal nipple-areolar complex, no lymphadenopathy and no nipple discharge ABDOMEN: soft, non-tender and no masses PELVIC: external genitalia normal, normal Bartholin's glands, urethra, Lithium's glands, no vulvar lesions, no cervical lesions, good vaginal support, physiologic discharge present, normal appearing perineal body and perianal region. Small simple appearing vaginal cyst posterior right vaginal wall. BIMANUAL: uterus normal size, shape and consistency, no adnexal masses and non-tender RECTOVAGINAL: deferred. NEURO: alert and oriented x3,exam grossly non-focal EXTREMITIES: normal ASSESSMENT/PLAN: 1) Health maintenance: Pap done with HPV. Mammogram starting age 40. Nutrition, exercise and routine health maintenance exams reviewed. Calcium/Vitamin D supplementation information provided. 2) Contraception: oral contraceptives . Contraceptive options reviewed and information provided. 3) STD screening: Declined STD check. 4) Follow up one year or sooner as needed Rocío Maldonado MD Referring Provider: SELF [200] Allergies As of Date: 10/13/2017 Noted Allergy Reaction GRASS POLLEN 03/02/2012 5 - Intolerance POLLEN 03/02/2012 5 - Intolerance Date Reviewed: 10/13/2017 Reviewed by: Arti Phelps Ma - Fully Assessed Reason for Visit: Yearly Exam [187] Primary Visit Diagnosis:Encounter for gynecological examination (general) (routine) without abnormal findings [Z01.419] Other Visit Diagnoses:Screening for cervical cancer [Z12.4] Encounter for screening for human papillomavirus (HPV) [Z11.51] Order(s):PAP FLUID CERVICAL SCREENING [3061550] Order #: [id number] Desogestrel-Ethinyl Estradiol (VIORELE, 28,) 0.15- 0.02 mgx21 /0.01 mg x 5 per tabletTake 1 tablet by mouth once daily.Disp: 84 tabletRfl: 5 Prescriptions as of 10/13/2017 Sig: ELETRIPTAN HBR 20 MG TABLET Take 20 mg by mouth as needed* DESOGESTREL-E.ESTRADIOL 0.15 * Take 1 tablet by mouth once d* SERTRALINE 25 MG TABLET Take 1 tablet by mouth once d* Patient not taking: Reported on 04/27/2017 * VITAMIN,CALCIUM,MINE* Take 1 tablet by mouth. 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 Prescriptions ordered this encounter Disp Refills Start End DESOGESTREL-E.ESTRADIOL 0.15 MG-0.02* 84 t* 5 10/13/2017 Route: ORAL Sig: Take 1 tablet by mouth once daily. Medications Discontinued During This Encounter VIORELE, 28, 0.15-0.02 mgx21 /0.01 m* 84 t* 0 08/29/2017 10/13/2017 Sig: TAKE 1 TABLET DAILY Disc: Reason for discontinue is not on file. Disposition: Return in 1 year (on 10/13/2018) for Annual Exam. Follow-up and Disposition History Recorded Encounter Status:Closed by ROCÍO GALO MD on 10/13/17 ALLERGIES ALLERGIES DATE TYPE / CODE NAME / CODE REACTION SEVERITY SOURCE 08/26/2018 Drug No Known Unknown [facility] Allergy/416 Allergies/F00 [facility] [id number](SNOM [id number](RXNOR Repository ED CT) M) 03/02/2012 DRUG GRASS POLLEN INTOLERANCE [facility] INGREDI/419 [facility] [place] [id number](SNOM Repository ED CT) 03/02/2012 Environ/420 POLLEN INTOLERANCE [facility] [id number](SNOM [facility] [place] [facility]) Repository ENCOUNTERS ENCOUNTERS ADMIT/DISCHARGE ACCOUNT NUMBER ADMITTING ENCOUNTER LOCATION SOURCE CLASS 09/03/2018/09/03/20 [id number] Ambulatory BBuilding:JANETTE [place] 18 [facility] Repository 08/27/2018/08/27/20 [id number] Ambulatory BBuilding: [address] Repository 08/26/2018/08/26/20 [id number] Emergency [address] ding:ED Repository 08/26/2018 [id number] [address] [place] [address] ([place]) Repository 08/18/2018/08/18/20 [id number] Emergency BBuilding:[place] [address] [address] [facility] Repository 12/07/2017/12/09/19 [id number] Ambulatory [address] Repository 10/13/2017/10/19/19 [id number] Ambulatory [address] Repository PAYERS PAYERS ENCOUNTER GUARANTOR PAYER SUBSCRIBER SOURCE 09/03/2018 [facility]: Insurance:MEDICAL MATHYSDOB: [facility] [id number] Repository [facility]: [place]AN[place] [id number] [place] [address]~tracymathy Date:2018-09-03 [id number]: [phone]) [email or web address] Servicesel: [id number] [phone] Name:BP O BOX (HP)Tel: (000) (HP)Tel: [phone]) [address], [place] 000-[address] (WP) [phone] (WP) [phone]: 08/27/2018 KASSANDRA L Primary KASSANDRA [facility] MATHYSDOB: Insurance:MEDICAL MATHYSDOB: [facility] [id number] Repository ROXANNA INSCOPolicy Number: ROXANNA [place] [id number] [address]~tracymathy Date:2018-08-27Tel: [phone]) [email or web address] Hospital [email or web address] Kirkwoodel: [phone] Name:[address] B[address] (HP)Tel: (000) (HP)Tel: [phone] [address], [place] 000[address] (WP) [phone] (WP) [phone]: 08/26/2018 GAIL CUTLER Primary Kassandramelonie Black MCKNIGHT Insurance:MEDICAL MathysDOB: [facility] [id number] [address]Jtb: (330) Number: Repository [phone] () [id number] Date:[id number] [address] [place] [phone]: 08/26/2018 Secondary NOT GIVENUNK Sofia Insurance:SELF PAY [facility] Number: Effective Repository Date:2018-08-26 08/18/2018 KASSANDRA L Primary KASSANDRA [facility] MATHYSDOB: Insurance:MEDICAL MATHYSDOB: [facility] [id number] Repository ROXANAN INSCOPolicy Number: CORI RUGGIERO [id number] [place], [place] [address]Jzv: (330) Date:2018-08-18Tel: [id number] [phone] (HP)Tel: [phone] Name:BPO BOX () (WP) [address], [place] 000[address] (WP) [phone]:
== END 2018-08-26 19:07 | disposition home or self-care (01) ==
PROVIDERS: Emergency Provider Emergency Medicine; Family Provider Family Medicine; PCP Family Medicine
DX: I80.8 Phlebitis and thrombophlebitis of other sites (principal); F41.9 Anxiety disorder, unspecified; Z79.899 Other long term (current) drug therapy
CPT/HCPCS: 99283

== ENCOUNTER → 2019-01-07 16:41 | Outpatient (CLI) | payer OTHER, SELFPAY | PROVIDERS: Family Provider Family Medicine; PCP Family Medicine; Referring Provider Otolaryngology; Visit Provider Otolaryngology | DX: J02.9 Acute pharyngitis, unspecified (principal) | CPT/HCPCS: 87070; 87077 ==

== ENCOUNTER → 2019-10-11 14:13 | Outpatient (CLI) | payer OTHER, SELFPAY ==
[2019-10-11 15:44] LABS: Erythrocyte Sedimentation Rate 13 mm/hr (0-20)
[2019-10-11 15:48] LABS: Absolute Neutrophil Count 4.8 X10^3/uL (2.0-7.7); Basophil# 0.05 X10^3/uL; Basophil% 0.6 % (0-1); Eosinophil# 0.07 X10^3/uL; Eosinophils% 0.9 % (0-5); Hematocrit 41.6 % (37-47); Hemoglobin 13.9 g/dL (12.0-15.0); Lymphocyte % 30.7 % (19-41); Mean Corp Hgb Conc 33.4 g/dL (32-36); Mean Corpuscular Hgb 29.2 pg (27.0-32.0); Mean Corpuscular Volume 87.4 fL (81-99); Mean Platelet Vol. 9.9 fl (6.2-12.0); Monocyte# 0.54 X10^3/uL; Monocyte% 6.9 % (0-10); NRBC Flagged by Analyzer 0 % (0-5); Neutrophil # 4.75 X10^3/uL (2.7-7.7); Neutrophil % 60.8 % (47-70); Platelet Count 266 K/mm3 (150-450); RBC Distribution Width CV 12.4 % (11.6-14.6); RBC Distribution Width SD 39.8 fl (35.1-43.9); Red Blood Count 4.76 M/mm3 (4.2-5.4); White Blood Count 7.8 K/mm3 (4.4-11.0)
[2019-10-11 15:58] LABS: ALB/GLOB Ratio 0.7 RATIO (0.9-2.4); AST(SGOT) 30 U/L (15-37); Alanine Aminotransfer ALT/SGPT 37 U/L (13-56); Albumin, Serum 3.3 g/dL (3.2-5.0); Alkaline Phosphatase 70 U/L (45-117); Anion Gap 6 (5-15); BUN 11 mg/dL (7-18); BUN/Creat Ratio 14.8 RATIO (10-20); Calcium,Total 8.9 mg/dL (8.5-10.1); Chloride 106 mmol/L (98-107); Creatinine, Serum 0.74 mg/dL (0.55-1.02); EST Glomerular Filtration Rate 95 mL/min (>60); Est Glom Filt Rate - Afr Amer 115 mL/min (>60); Globulin 4.6 g/dL (2.2-4.2); Glucose 90 mg/dL (74-106); Potassium 3.6 mmol/L (3.5-5.1); Protein, Total 7.9 g/dL (6.4-8.2); Rheumatoid Factor < 10.0 IU/mL (<15); Sodium Level 138 mmol/L (136-145)
[2019-10-12 10:45] LABS: Hepatitis B Surface Antibody Reactive; Hepatitis B Surface Antigen Non-Reactive (Nonreactive); Hepatitis C Antibody Non-Reactive (Nonreactive)
[2019-10-14 09:34] LABS: CCP IgG Antibodies 8 units (0-19); Hepatitis B Core AB IgM Negative (Negative)
== END ==
PROVIDERS: Family Provider Family Medicine; PCP Family Medicine; Referring Provider Internal Medicine Rheumatology; Visit Provider Internal Medicine Rheumatology
DX: M06.4 Inflammatory polyarthropathy (principal); M79.7 Fibromyalgia; F41.9 Anxiety disorder, unspecified; F32.9 Major depressive disorder, single episode, unspecified
CPT/HCPCS: 36415; 80053; 85025; 85652; 86140; 86200; 86431; 86705; 86706; 86803; 87340

== ENCOUNTER → 2022-08-19 | Outpatient (CLI) | payer BC, SELFPAY ==
--- NOTE | 2022-08-19 06:49 | MRI_ITS ---
HISTORY: SENSORINEURAL HEARING LOSS, RIGHT TINNITUS, RIGHT CAO''S PALSY. TECHNIQUE: Multiplanar and multisequence MR images of the brain were obtained before and after the intravenous administration of 19 mL Clariscan. 420 images. COMPARISON: None. FINDINGS: BRAIN PARENCHYMA: No significant signal abnormality or enhancing lesion in the brain parenchyma. No abnormal focus of restricted diffusion to suggest acute infarct. No acute intracranial hemorrhage identified. CSF SPACES: Partially of the sella configuration incidentally noted. Cerebral ventricles, cortical sulci, and other extra-axial CSF spaces otherwise within normal limits in size. No significant midline shift or other mass effect. No extra-axial fluid collection observed. INTERNAL AUDITORY CANALS: Mild enhancement of the right fundal tuft in the internal auditory canal with mild enlargement and linear enhancement continuing into the labyrinthine segment, geniculate ganglion, tympanic, and mastoid facial nerve segments to the level of the stylomastoid foramen. No cerebellopontine angle mass. VASCULAR SYSTEM: Major flow voids are maintained. PARANASAL SINUSES AND MASTOID AIR CELLS: No significant air fluid levels. ORBITS: Symmetric contents. MRI/Brain W/WO Contrast IMPRESSION: Linear enhancement of the right facial nerve, compatible with the history of Cao palsy. No evidence for acute infarct, enhancing mass in the brain parenchyma, or other significant signal abnormality in the brain. Electronically Signed: Carolina Harris MD at 10:20 EST ,
== END | disposition home or self-care (01) ==
LOC: MRI 06:46
PROVIDERS: PCP Nurse Practitioner Family; Referring Provider Otolaryngology; Visit Provider Otolaryngology
DX: H93.12 Tinnitus, left ear (principal); G51.0 Bell's palsy
CPT/HCPCS: 70553; A9575